=== PATIENT | female | born 1970 | race Caucasian/White ===

== ENCOUNTER 2022-01-28 17:00 | Emergency (ER) | payer OTHER ==
[~2022-01-28] VITALS: Ht 160 cm; Wt 99.7 kg
[~2022-01-28 17:00] MED LIST: HYDR1TAB8 OP; NAPR250T2; THYROID
--- NOTE | 2022-01-28 17:36 | ED Head Injury ---
General Chief Complaint: Head/Cervical Problems Stated Complaint: HIT HEAD AT WORK Nursing Triage Note: PT AMBULATORY TO ER, REPORTS GOT HIT IN THE HEAD WITH THE METAL RAMP OF A W/C VAN, C/O BRUISING AND SWELLING TO L FOREHEAD, DENIES LOC, DENIES TAKING BLOOD THINNER. Source: patient Exam Limitations: no limitations (DIONNE MILES STUDENT) History of Present Illness Date Seen by Provider: Jan 28, 2022 Time Seen by Provider: 17:25 Initial Comments Patient is a 51 year old female who presents to the ED with complaints of a headache after hitting her head on a wheel chair ramp on her van while attempting to close the door. Reports that at 3:45 today was attempting to ignacio ce wheel chair ramp back into her work van and while trying to close the door, a lona of wind blew the wheel chair ramp into her forehead. Reports a frontal headache at the site of impact and radiation bilaterally across the frontal bone. Denies loss of consciousness during or after the event. Denies confusion, blurry vision, rhinorrhea, otorrhea, nausea, vomiting, and tinnitus. Rates the headache a 10/10 and describes it as a constant throbbing pain. She did not take anything for the headache after the injury. Is not on blood thinners. Does take NSAIDS occasionally for general aches/pains. Denies chest pain, SOB, diarrhea, and other injuries. Occurred: this afternoon Severity: severe Location: frontal Method of Injury: direct blow Loss of Consciousness: no loss of consciousness Associated Systoms: No Chest Pain, No Cough, No Diaphoresis, No Fever/Chills; Headaches; No Nausea/Vomiting, No Seizure, No Shortness of Air, No Syncope (DIONNE MILES STUDENT) Allergies and Home Medications Allergies Coded Allergies: No Known Drug Allergies (Unverified , 12/16/10) Patient Home Medication List Home Medication List Reviewed: Yes (DANIELLE ZAZUETA) Hydrocodone Bit/Ibuprofen (Vicoprofen 200-7.5 Mg Tab) 1 Each Tablet, 1-2 EACH OP Q 4 - 6 HRS PRN Prescribed by: TITA LAROSE on 12/16/10 1857 Naproxen (Rx-Naprosyn) 250 Mg Tab, BID, (Reported) Entered as Reported by: VEE HARMON on 12/16/10 1547 [Thyroid] , 100 MG, (Reported) Entered as Reported by: VEE HARMON on 12/16/10 1547 Review of Systems Review of Systems Constitutional: no symptoms reported; No chills, No diaphoresis, No dizziness, No malaise Eyes: No Symptoms Reported; Denies Blindness, Denies Blurred Vision, Denies Drainage, Denies Decreased Acuity, Denies Pain, Denies Photophobia, Denies Shadows, Denies Vision Changes Ears, Nose, Mouth, Throat: no symptoms reported; denies ear pain, denies ear discharge, denies nose pain, denies nose discharge, denies loose teeth Respiratory: no symptoms reported; No cough, No short of breath Cardiovascular: no symptoms reported; No chest pain, No edema, No palpitations Gastrointestinal: No abdominal pain, No constipation, No diarrhea Genitourinary: no symptoms reported; No dysuria, No frequency Musculoskeletal: no symptoms reported; No back pain, No joint pain, No joint swelling Skin: no symptoms reported; No change in color, No change in hair/nails Psychiatric/Neurological: No Symptoms Reported; Denies Anxiety, Denies Depressed Endocrine: No Symptoms Reported; Denies Excessive Sweating, Denies Flushing Hematologic/Lymphatic: No Symptoms Reported; Denies Easy Bleeding, Denies Easy Bruising (EFRA MILESdentaZOOM STUDENT) All Other Systems Reviewed Negative Unless Noted: Yes (EFRA MILESdentaZOOM STUDENT) Past Wnwnkoz-Cbuovy-Yxswoy Hx Patient Social History Tobacco Use?: Yes Tobacco type used: Cigarettes Smoking Status: Current Everyday Smoker Smokeless Tobacco Frequency: Never a User Use of E-Cig and/or Vaping dev: No Substance use?: No Alcohol Use?: Yes Alcohol Frequency: Rarely Pt feels they are or have been: No (JDBlackStratus STUDENT) Tobacco Use?: Yes Tobacco type used: Cigarettes Smoking Status: Current Everyday Smoker Use of E-Cig and/or Vaping dev: No (DANIELLE ZAZUETA) Immunizations Up To Date Tetanus Booster (TDap): Unknown First/Initial COVID19 Vaccinat: UNK Second COVID19 Vaccination Garth: OCT 2021 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[email or web address] (EFRA MILESdentaZOOM AIDAN) Seasonal Allergies Seasonal Allergies: No (DIONNE MILES Atzip AIDAN) Past Medical History Surgeries: Yes Section (x2) Respiratory: No Cardiac: No Neurological: No Last Menstrual Period: Jan 26, 2022 Reproductive Disorders: No TIRE FIXER History: Tubal Ligation HIV/AIDS: No Genitourinary: No Gastrointestinal: No Musculoskeletal: No Endocrine: No HEENT: No Loss of Vision: Denies Hearing Impairment: Denies Cancer: No Psychosocial: No Integumentary: No Blood Disorders: No (DIONNE MILES At[employer] STUDENT) Physical Exam Vital Signs Vital Signs - First Documented 01/28/22 17:10 Temp 36.9 Pulse 91 Resp 18 B/P (MAP) 124/72 (89) Pulse Ox 98 O2 Delivery Room Air (DANIELLE ZAZUETA) Vital Signs Capillary Refill : (DIONNE MILES At[employer] STUDENT) Height, Weight, BMI Height: '" Weight: lbs. oz. kg; 38.00 BMI Method: General Appearance: WD/WN, no apparent distress HEENT: PERRL/EOMI, normal ENT inspection, TMs normal, pharynx normal Neck: non-tender, full range of motion, supple, normal inspection Cardiovascular: normal peripheral pulses, no murmur Respiratory: chest non-tender, lungs clear, normal breath sounds Gastrointestinal: normal bowel sounds, non tender, soft Back: normal inspection, no vertebral tenderness Extremities: normal range of motion, non-tender, no pedal edema, no calf tenderness Psychiatric: alert, oriented x 3 Crainal Nerves: normal hearing, normal speech, PERRL Coordination/Gait: normal gait Motor/Sensory: no motor deficit, no sensory deficit Skin: normal color, warm/dry Lymphatic: no adenopathy (Head and Neck) (DIONNE MILES At[employer] STUDENT) Hope Coma Score Best Eye Response: (4) Open Spontaneously Best Verbal Response: (5) Oriented Best Motor Response: (6) Obeys Commands Hope Total: 15 (EFRA MILESdentaZOOM STUDENT) Progress/Results/Core Measures Results/Orders My Orders Orders - DANIELLE ZAZUETA Ct Head/Cervical Spine Wo (01/28/22 17:40) (DANIELLE ZAZUETA) Vital Signs/I&O 01/28/22 17:10 Temp 36.9 Pulse 91 Resp 18 B/P (MAP) 124/72 (89) Pulse Ox 98 O2 Delivery Room Air (DANIELLE ZAZUETA) Blood Pressure Mean: 89 Progress Progress Note : Time: 17:45 Progress Note Discussed risks, benefits and alternatives to imaging versus observation. The patient states she lives at home alone and does not have anybody to observe her. She would like to pursue CT imaging we will get a noncontrast CT of her head and C-spine. Ice pack for her forehead. We will offer her some Toradol if her CT is nonpathological. (DANIELLE ZAZUETA) Diagnostic Imaging Diagonstic Imaging: CT Plain Films/CT/US/NM/MRI: c-spine, head Reviewed: Reviewed by Me (DANIELLE ZAZUETA) Transfer of Care Time: 18:10 Care transferred to: Jose G Fernandes APRN (DANIELLE ZAZUETA) Departure Impression Primary Impression: Injury of head and neck Disposition: HOME, SELF-CARE Condition: Stable Departure-Patient Inst. Referrals: NO,LOCAL PHYSICIAN (PCP/Family) Primary Care Physician Patient Instructions: HEMATOMA, Whiplash, Concussion, Adult (DC) Add. Discharge Instructions: You may be more sore tomorrow. Use ice 20 minutes on every 2 hours for the first 2 to 3 days to reduce swelling and pain. Tylenol 1000 mg every 8 hours necessary for pain. Ibuprofen 800 mg every 8 hours necessary for pain. Cyclobenzaprine 1 tablet every 8 hours as necessary for muscle spasms. Will cause drowsiness and should not be mixed with long drives or operating heavy machinery. If it makes you too drowsy you may cut the tablet in half. Drink plenty of fluids and get some rest tonight. If you are having symptoms of a concussion including headache, irritability, difficulty concentrating, nausea, problems walking then you need to go home and get some sleep and follow-up with your primary care doctor for management of symptoms. If you are having confusion, weakness resulting in falls or other worrisome symptoms then return to the nearest ER promptly. All discharge instructions reviewed with patient and/or family. Voiced understanding. I was not present in the Department at the time this patient was seen and evaluated. My name was attached to the chart by mistake. I have not seen, evaluated or participated in the care of this patient on this date. (BABAR MCINTYRE MD) DIONNE MILES MED STUDENT Jan 28, 2022 17:36 DANIELLE ZAZUETA Jan 28, 2022 17:47 JOSE G FERNANDES APRN Jan 28, 2022 19:10 BABAR MCINTYRE MD Jan 30, 2022 06:29
--- NOTE | 2022-01-28 19:04 | Diagnostic Imaging Report ---
PROCEDURE: CT head and CT cervical spine without contrast. TECHNIQUE: Multiple contiguous axial images were obtained through the brain and cervical spine without the use of intravenous contrast. Sagittal and coronal reformations through the cervical spine were then performed. Auto Exposure Controls were utilized during the CT exam to meet ALARA standards for radiation dose reduction. INDICATION: Trauma with head and neck injury. COMPARISON: No prior studies are available for comparison. CT HEAD: FINDINGS: Ventricles and sulci are within normal limits. No sulcal effacement or midline shift is identified. No acute intra-axial or extra-axial hemorrhage is detected. Cisterns are patent. Visualized paranasal sinuses are clear. IMPRESSION: No acute intracranial process is detected. CT CERVICAL SPINE: FINDINGS: There is straightening of the normal cervical lordotic curvature. Minimal anterolisthesis of C3 on C4 is noted. There is multilevel degenerative disc disease with variable disc space narrowing and marginal spurring. No fractures are seen. Prevertebral tissues are within normal limits. Odontoid is intact. IMPRESSION: Cervical spondylosis. No acute bony abnormality is detected. Dictated by: Dictated on workstation # [id number]
[2022-01-28 19:11] VITALS: BP 121/69
[2022-01-28] MEDS ORDERED: KETOROLAC 30 MG/ML VIAL IM ONE (19:15)
== END 2022-01-28 19:15 | disposition home or self-care (01) ==
LOC: EDUNIT# 17:00 → ER 17:05
DX: S09.90XA Unspecified injury of head, initial encounter (principal); S19.9XXA Unspecified injury of neck, initial encounter; F17.210 Nicotine dependence, cigarettes, uncomplicated; R40.2410 Glasgow coma scale score 13-15, unspecified time; W22.8XXA Striking against or struck by other objects, initial encounter
CPT/HCPCS: 70450; 72125